=== PATIENT | female | born 1995 | race American Indian/Alaskan Native ===

== ENCOUNTER 2017-11-27 13:32 | Emergency (ER) | payer BC ==
[2017-11-27] MEDS ORDERED: MOTRIN PO ONE (18:10)
--- NOTE | 2017-11-27 18:10 | Emergency Department Report ---
ED General Adult HPI - General Chief complaint: Dyspnea/Respdistress Stated complaint: COLD/RASH Time Seen by Provider: 11/27/17 17:45 Source: patient, RN notes reviewed Mode of arrival: Ambulatory Limitations: No Limitations - History of Present Illness Initial comments: This is a 22-year-old female who was previously unknown to this provider. She reports that she is not . She reports a past medical history of asthma and eczema. Patient presents to the ER with a complaint of "breathing problems. " She reports that she feels "I have a hole in my chest." The patient further reports that these problems have been present since August , Thanks. A decrease when she takes an asthma inhaler, and increased with exposure to cold weather. She denies headache, neck pain, abdominal pain, leg pain, leg swelling, recent trips, denies history of DVT, pulmonary embolus risk factors. She describes central chest discomfort with coughing. This discomfort does not radiate to the back, arms or neck. It has been present since August. Patient also describes nonspecific eczematous rash, on her bilateral upper extremities, and bilateral medial thighs and bilateral knees. This has been going on for a few weeks. -: Gradual, month(s) Location: chest Radiation: non-radiation Consistency: intermittent Improves with: other Worsens with: other Associated Symptoms: shortness of breath. denies: confusion, cough, diaphoresis , fever/chills, headaches, loss of appetite, malaise, nausea/vomiting, rash, seizure, syncope, weakness - Related Data Previous Rx's Medication Instructions Recorded Last Taken Type Albuterol Sulfate [Proair 90 mcg IH Q4HR PRN #2 aer.[email or web address] 11/27/17 Unknown Rx Respiclick] Fluticasone [Flonase] 1 spray NS QDAY #1 bottle 11/27/17 Unknown Rx Ibuprofen [Motrin] 600 mg PO Q8H PRN #30 tablet 11/27/17 Unknown Rx Allergies Allergy/AdvReac Type Severity Reaction Status Date / Time No Known Allergies Allergy Unverified 11/27/17 18:36 ED Review of Systems ROS: Stated complaint: COLD/RASH Other details as noted in HPI ED Past Medical Hx - Past Medical History Hx Asthma: Yes - Medications Home Medications: Home Medications Medication Instructions Recorded Confirmed Last Taken Type Albuterol Sulfate [Proair 90 mcg IH Q4HR PRN #2 aer.pow.ba 11/27/17 Unknown Rx Respiclick] Fluticasone [Flonase] 1 spray NS QDAY #1 bottle 11/27/17 Unknown Rx Ibuprofen [Motrin] 600 mg PO Q8H PRN #30 tablet 11/27/17 Unknown Rx ED Physical Exam - General Limitations: No Limitations General appearance: alert, in no apparent distress - Head Head exam: Present: atraumatic, normocephalic - Eye Eye exam: Present: normal appearance, EOMI. Absent: nystagmus - ENT ENT exam: Present: normal exam, normal orophraynx, mucous membranes moist, normal external ear exam - Neck Neck exam: Present: normal inspection, full ROM - Respiratory Respiratory exam: Present: normal lung sounds bilaterally, chest wall tenderness. Absent: respiratory distress - Cardiovascular Cardiovascular Exam: Present: regular rate, normal rhythm, normal heart sounds. Absent: bradycardia, tachycardia, irregular rhythm, systolic murmur, diastolic murmur, rubs, gallop - GI/Abdominal GI/Abdominal exam: Present: soft, normal bowel sounds. Absent: distended, tenderness, guarding, rebound, rigid, pulsatile mass - Extremities Exam Extremities exam: Present: normal inspection, full ROM, normal capillary refill , other (there is no redness, pus or streaking. There is no tenderness. The compartments are soft. Hyperpigmented skin noted on the bilateral popliteal fossa as well as bilateral elbows. During the leg and thigh exam, I was chaperoned by ER right of way cutter Poly Gudino). Absent: pedal edema, joint swelling, calf tenderness - Back Exam Back exam: Present: normal inspection, full ROM. Absent: paraspinal tenderness , vertebral tenderness - Neurological Exam Neurological exam: Present: alert, oriented X3, CN II-XII intact, normal gait, other (Extraocular movements intact. Tongue midline. No facial droop. Facial sensation intact to light touch in the V1, V2, V3 distribution bilaterally. 5 and 5 strength in 4 extremities.. Sensation is intact to light touch in 4 extremities.). Absent: motor sensory deficit - Psychiatric Psychiatric exam: Present: normal affect, normal mood - Skin Skin exam: Present: warm, normal color ED Course Vital Signs 11/27/17 14:01 Temperature 98.4 F Pulse Rate 85 Respiratory 15 Rate Blood Pressure 111/69 O2 Sat by Pulse 100 Oximetry ED Medical Decision Making - Lab Data Vital Signs 11/27/17 14:01 Temperature 98.4 F Pulse Rate 85 Respiratory 15 Rate Blood Pressure 111/69 O2 Sat by Pulse 100 Oximetry - EKG Data 11/27/17 18:57 Sinus tachycardia, 105 bpm, normal axis, normal intervals, T-wave inversions V2 , V3, suggestive of persistent juvenile T-wave inversion, not morphologically consistent with ST elevation myocardial infarction. - Radiology Data Radiology results: image reviewed interpreted by me: X-ray of the chest, interpreted by me: No acute disease - Medical Decision Making Differential diagnosis, including but not limited to: Pneumonia, pneumothorax, asthma, nonspecific bronchitis Assessment and plan: 22-year-old female who endorses shortness of breath or months. No pulmonary embolus or DVT risk factors, low risk by well's criteria. EKG age and race appropriate; suggests persistent juvenile T-wave inversion. Patient also has some reproducible chest wall tenderness. Patient does not appear to have an emergent condition at this time, patient is observed in the ER for hours without clinical decompensation, multiple times during my evaluation she is noted to be walking around the ER without shortness of breath difficulty, and she is noted to be writing notes with a pen and paper without difficulty. Critical care attestation.: If time is entered above; I have spent that time in minutes in the direct care of this critically ill patient, excluding procedure time. ED Disposition Clinical Impression: Dyspnea Disposition: DC-01 TO HOME OR SELFCARE Is pt being admited?: No Does the pt Need Aspirin: No Condition: Good Instructions: Dyspnea (ED) Additional Instructions: Take the medications as needed/directed. Follow up with the primary care doctor within the next month. Return to the ER right away with you pain, worsened pain, migration of pain, fevers, chills, lethargy, irritability, projectile vomiting, change in mental status, confusion, inability to tolerate liquid feeds. Referrals: PRIMARY CAREMD [Primary Care Provider] - 3-5 Days AARON TEJEDA MD [Staff Physician] - 3-5 Days [facility] [Provider Group] - 3-5 Days
[2017-11-27 19:07] VITALS: BP 118/68
--- NOTE | 2017-11-27 19:20 | XRay Report ---
FINAL REPORT PROCEDURE: Chest. TECHNIQUE: PA and lateral views. HISTORY: Dyspnea. COMPARISON: No prior studies are available for comparison. FINDINGS: The heart and mediastinum appear normal. The lungs are clear and well expanded. There are no pleural effusions. The soft tissues and regional skeleton are unremarkable. IMPRESSION: Normal study.
== END 2017-11-27 19:06 | disposition home or self-care (01) ==
LOC: ED 13:32
DX: R06.00 Dyspnea, unspecified (principal)
CPT/HCPCS: 71046; 93005; 93010

== ENCOUNTER 2017-12-21 10:55 | Emergency (ER) | payer BC ==
[2017-12-21 11:18] VITALS: BP 119/73
[2017-12-21] MEDS ORDERED: MOTRIN ONE (13:36)
[2017-12-21] MEDS ORDERED: FLEXERIL ONE (13:36)
[2017-12-21] MEDS ORDERED: FLEXERIL PO ONE (13:37)
[2017-12-21] MEDS ORDERED: MOTRIN PO ONE (13:37)
--- NOTE | 2017-12-21 13:46 | Emergency Department Report ---
HPI - General Chief Complaint: Extremity Injury, Lower Time Seen by Provider: 12/21/17 13:42 - HPI HPI: Patient is a 22-year-old female with no primary for history who presents to ED complaining of right ankle pain for the past week. Patient states that she works at [employer] ground and does a lot of walking and states that last night her right ankle began hurting. Patient states is moderately relieved now. Patient states pain is localized to her right lateral aspect of her ankle. Patient states she did not fall or sustain any injuries or trauma to the ankle. He denies any calf tenderness, difficulty walking, loss of sensation. ED Past Medical Hx - Past Medical History Previous Medical History?: Yes Hx Asthma: Yes - Surgical History Past Surgical History?: No - Medications Home Medications: Home Medications Medication Instructions Recorded Confirmed Last Taken Type Albuterol Sulfate [Proair 90 mcg IH Q4HR PRN #2 aer.pow.ba 11/27/17 Unknown Rx Respiclick] Fluticasone [Flonase] 1 spray NS QDAY #1 bottle 11/27/17 Unknown Rx Cyclobenzaprine [Flexeril] 10 mg PO QHS PRN #20 tablet 12/21/17 Unknown Rx Ibuprofen [Motrin 600 MG tab] 600 mg PO Q8H PRN #30 tablet 12/21/17 Unknown Rx ED Review of Systems ROS: Stated complaint: ANKLE PAIN Other details as noted in HPI Constitutional: denies: chills, fever Eyes: denies: eye pain, eye discharge, vision change ENT: denies: ear pain, throat pain Respiratory: denies: cough, shortness of breath, wheezing Cardiovascular: denies: chest pain, palpitations Endocrine: no symptoms reported Gastrointestinal: denies: abdominal pain, nausea, diarrhea Genitourinary: denies: urgency, dysuria, discharge Musculoskeletal: denies: back pain, joint swelling, arthralgia Skin: denies: rash, lesions Neurological: denies: headache, weakness, paresthesias Psychiatric: denies: anxiety, depression Hematological/Lymphatic: denies: easy bleeding, easy bruising Physical Exam - Physical Exam Vital Signs: Vital Signs 12/21/17 11:17 Temperature 98.5 F Pulse Rate 100 H Respiratory 18 Rate Blood Pressure 119/73 O2 Sat by Pulse 99 Oximetry Physical Exam: GENERAL: Alert and oriented x3, no apparent distress, Normal Gait, atraumatic. HEAD: Head is normocephalic and a-traumatic. NECK: Supple. Non edematous. No lymphadenopathy or thyromegaly. No C-spine tenderness LUNGS: Symetrical with respiration, CTAB. HEART: S1, S2 present, regular rate and rhythm without murmur, BACK: Full range of motion, no spinal tenderness, nontender to palpation. EXTREMITIES/MUSCULOSKELETAL: No cyanosis, clubbing, rash, lesions or edema. Full ROM bilaterally. UE/LE Pulses 2+ bilaterally. LE and UE 5+ strength bilaterally, all ankle joints intact BILATERALLY. Right ankle is not erythematous, no dislocation or deformity seen, mildly tender to palpation of the medial aspect of the ankle. Patient able to flex and extend foot appropriately with no problems NEUROLOGIC: The patient is cooperative with no focal neurologic deficits. Normal speech. Normal sensation in bilateral upper and lower extremities, No loss of sensation, SKIN: Warm and dry, No lesions, No ulceration or induration present. ED Course Vital Signs 12/21/17 11:17 Temperature 98.5 F Pulse Rate 100 H Respiratory 18 Rate Blood Pressure 119/73 O2 Sat by Pulse 99 Oximetry ED Medical Decision Making - Radiology Data Radiology results: report reviewed, image reviewed LEFT ANKLE RADIOGRAPHS INDICATION: Pain, decreased range of motion. COMPARISON: None similar. FINDINGS: AP and lateral left ankle radiographs demonstrate grossly intact bony contours and ankle mortise. Vague distal tibia metadiaphyseal oblique sclerosis on the frontal view nonspecific, not clearly identified on the lateral. Intact malleoli and talar dome contour. Slight diffuse ankle soft tissue swelling though not excluded, medial more than lateral. CONCLUSION: Slight ankle soft tissue swelling possible without acute displaced fracture. Subtle oblique distal tibial sclerosis however nonspecific. Stress injury type etiology may though be correlated for clinically in an appropriate setting and further evaluated/imaged, if warranted or symptoms persist. Thank you for the opportunity to participate in this patient's care. Transcribed By: RS Dictated By: SANCHEZ STEWART MD Electronically Authenticated By: SANCHEZ STEWART MD Signed Date/Time: 12/21/17 1412 - Medical Decision Making 22-year-old female presents to ED with myalgia of r ankle ED course: Patient received motrin and Flexeril in ED. Vital signs are normal patient is in no acute distress Discussed with patient follow-up with primary care physician. Discussed the patient and take medications as prescribed. Patient has no neurological deficit. Patient is alert and oriented 3 and understands all instructions given. Discussed drowsiness effect of Flexeril makes her drowsy and not to operate machinery while taking flexeril Critical care attestation.: If time is entered above; I have spent that time in minutes in the direct care of this critically ill patient, excluding procedure time. ED Disposition Clinical Impression: Muscle strain of right ankle Qualifiers: Encounter type: initial encounter Qualified Code(s): S96.911A - Strain of unspecified muscle and tendon at ankle and foot level, right foot, initial encounter Disposition: - TO HOME OR SELFCARE Is pt being admited?: No Does the pt Need Aspirin: No Condition: Stable Instructions: Muscle Strain (ED), Ankle Exercises (GEN) Additional Instructions: Make sure to follow up with the primary care physician as discussed. Take all your medications as you've been prescribed. If you have any worsening symptoms or develop new symptoms please return to ED immediately. Prescriptions: Cyclobenzaprine [Flexeril] 10 mg PO QHS PRN #20 tablet PRN Reason: Muscle Spasm Ibuprofen [Motrin 600 MG tab] 600 mg PO Q8H PRN #30 tablet PRN Reason: Pain Referrals: PRIMARY CAREMD [Primary Care Provider] - 3-5 Days ERICKA JOHNSTON MD [Referring] - 3-5 Days [facility] [Outside] - 3-5 Days [facility] [Outside] - 3-5 Days Forms: Work/School Release Form(ED) Time of Disposition: 13:45
--- NOTE | 2017-12-21 14:20 | XRay Report ---
LEFT ANKLE RADIOGRAPHS INDICATION: Pain, decreased range of motion. COMPARISON: None similar. FINDINGS: AP and lateral left ankle radiographs demonstrate grossly intact bony contours and ankle mortise. Vague distal tibia metadiaphyseal oblique sclerosis on the frontal view nonspecific, not clearly identified on the lateral. Intact malleoli and talar dome contour. Slight diffuse ankle soft tissue swelling though not excluded, medial more than lateral. CONCLUSION: Slight ankle soft tissue swelling possible without acute displaced fracture. Subtle oblique distal tibial sclerosis however nonspecific. Stress injury type etiology may though be correlated for clinically in an appropriate setting and further evaluated/imaged, if warranted or symptoms persist. Thank you for the opportunity to participate in this patient's care.
== END 2017-12-21 13:53 | disposition home or self-care (01) ==
LOC: ED 10:55
DX: S96.812A Strain of other specified muscles and tendons at ankle and foot level, left foot, initial encounter (principal); J45.909 Unspecified asthma, uncomplicated; X50.3XXA Overexertion from repetitive movements, initial encounter; Y93.89 Activity, other specified; Y92.89 Other specified places as the place of occurrence of the external cause; Y99.8 Other external cause status
CPT/HCPCS: 99283